=== PATIENT | female | born 1980 | race Caucasian/White ===

== ENCOUNTER → 2016-04-21 | Outpatient (CLI) | payer OTHER ==
--- NOTE | 2016-04-22 05:19 | REP ---
Clinical: Right upper quadrant and postprandial abdominal pain. Technique: Mahmood scale ultrasound using curved array transducer. Findings: The liver and pancreas are normal in contour, size, and echogenicity without focal hepatic or pancreatic lesions identified. The gallbladder is normal without gallstones, wall thickening or pericholecystic fluid. No biliary ductal dilatation is appreciated, and the common bile duct measures 4.0 mm diameter. The right kidney is normal in reniform shape without hydronephrosis and measures 9.4 x 4.4 x 4.2 cm. No ascites. Visualized portions of the abdominal aorta normal. Impression: Normal right upper quadrant and gallbladder abdominal ultrasound. Signed by Brant Michaels MD 04/22/2016 05:10 A
== END ==
LOC: M LRY 09:52
PROVIDERS: ATTEND Family Medicine
DX: R10.11 Right upper quadrant pain (principal)
CPT/HCPCS: 76705; 80053; 82150; 83690; 85025; G0463

== ENCOUNTER → 2016-04-21 | Outpatient (REF) | payer OTHER ==
[2016-04-21 11:32] LABS: BASO # 0.1 K/mm3 (0.0-0.2); BASO % 0.7 % (0.0-1.0); EOS # 0.1 K/mm3 (0.0-0.50); EOS % 1.3 % (0.0-3.0); LARGE UNSTAINED CELL # 0.1 K/mm3 (0.0-0.4); LARGE UNSTAINED CELL % 1.5 % (0.0-4.0); LYMPH # 2.8 K/mm3 (1.5-4.5); LYMPH % 34.3 % (24.0-44.0); MEAN CORPUSCULAR HEMOGLOBIN 27.6 pg (27.0-33.0); MEAN CORPUSCULAR HGB CONC 32.7 g/dl (32.0-36.5); MEAN CORPUSCULAR VOLUME 84.4 fl (80.0-96.0); MONO # 0.3 K/mm3 (0.0-0.8); MONO % 3.4 % (0.0-5.0); NEUTROPHILS # 4.8 K/mm3 (1.8-7.7); NEUTROPHILS % 58.8 % (36.0-66.0); PLATELET COUNT, AUTOMATED 319 k/mm3 (150-450); WHITE BLOOD COUNT 8.2 K/mm3 (4.0-10.0)
[2016-04-21 11:55] LABS: ALBUMIN 4.1 GM/DL (3.2-5.2); ALBUMIN/GLOBULIN RATIO 1.08 (1.00-1.93); ALKALINE PHOSPHATASE 85 U/L (45-117); ALT/SGPT 32 U/L (12-78); AMYLASE 54 U/L (25-115); ANION GAP 9 MEQ/L (8-16); AST/SGOT 19 U/L (15-37); BILIRUBIN,TOTAL 0.3 MG/DL (0.2-1.0); BLOOD UREA NITROGEN 11 MG/DL (7-18); CALCIUM LEVEL 8.9 MG/DL (8.5-10.1); CARBON DIOXIDE LEVEL 30 MEQ/L (21-32); CHLORIDE LEVEL 103 MEQ/L (98-107); CREATININE FOR GFR 0.81 MG/DL (0.55-1.02); GLOMERULAR FILTRATION RATE > 60.0 (>60); GLUCOSE, FASTING 77 MG/DL (70-105); POTASSIUM SERUM 4.4 MEQ/L (3.5-5.1); SODIUM LEVEL 142 MEQ/L (136-145); TOTAL PROTEIN 7.9 GM/DL (6.4-8.2)
== END | disposition home or self-care (01) ==
LOC: M SFHCLERA 09:43
PROVIDERS: ATTEND Family Medicine
DX: R10.11 Right upper quadrant pain (principal)

== ENCOUNTER → 2016-07-14 | Outpatient (CLI) | payer OTHER ==
[~2016-07-14] MED LIST: LOES1TAB12 PO; NEXI40CA PO; ZOLO25TA PO
--- NOTE | 2016-07-14 11:31 | REP ---
HIDA SCAN WITH GALLBLADDER EJECTION FRACTION: Following the intravenous administration of 6.2 mCi of technetium 99m mebrofenin, multiple images of the right upper quadrant are performed every 5 minutes for a period of 1 hour. Gallbladder is visualized at 40 minutes post injection. There is biliary to bowel transit by 25 minutes post injection with no scintigraphic evidence of cholecystitis. At the 1 hour evens, 8 ounces of Ensure Enlive was ingested and further imaging performed for 1 hour. Gallbladder activity is measured and the gallbladder ejection fraction is calculated to be 35% which is at the lower limits of normal. IMPRESSION: Gallbladder ejection fraction 35% is at the lower limits of normal. No scintigraphic evidence of cholecystitis. Signed by Doug Mahmood MD 07/14/2016 05:24 P
== END ==
LOC: M RAD 08:27
PROVIDERS: ATTEND Internal Medicine Gastroenterology
DX: R10.13 Epigastric pain (principal)

== ENCOUNTER 2016-08-14 12:45 | Outpatient (CLI) | payer OTHER ==
[~2016-08-14] VITALS: Ht 162.6 cm; Wt 72.6 kg
[~2016-08-14 12:45] MED LIST changes: +NS 1,000 ML IV ONE; +RANI15TA PO
[2016-08-14] MEDS ORDERED: PROPOFOL 200 MG/20 ML VIAL As Ordered ONE (14:11)
[2016-08-14] MEDS ORDERED: LIDOCAINE 2% INJ 100 MG/5 ML SDV (FOR ANES.) As Ordered ONE (14:11)
--- NOTE | 2016-08-14 14:21 | ROOR ---
Patient Name: Mehnaz Paulino Procedure Date: 08/14/2016 1:53 PM Date of : 1980 Age: 35 Room: [facility] Gender: Female Note Status: Finalized Procedure: Upper GI endoscopy Indications: Epigastric abdominal pain, Functional Dyspepsia Providers: Cody STOKES MD Referring MD: CIRILO WOMACK MD Requesting Provider: Medicines: Monitored Anesthesia Care Complications: No immediate complications. Procedure: Pre-Anesthesia Assessment: - The heart rate, respiratory rate, oxygen saturations, blood pressure, adequacy of pulmonary ventilation, and response to care were monitored throughout the procedure. The Endoscope was introduced through the mouth, and advanced to the third part of duodenum. The upper GI endoscopy was accomplished without difficulty. The patient tolerated the procedure well. Findings: The esophagus was normal. The stomach was normal. The examined duodenum was normal. Biopsies for histology were taken with a cold forceps for evaluation of celiac disease. Impression: - Normal esophagus. - Normal stomach. - Normal examined duodenum. Biopsied. Recommendation: - Continue present medications. (Dicyclomine as needed) - Telephone endoscopist for pathology results in 2 weeks. Cody Stokes MD Cody STOKES MD 08/14/2016 2:20:49 PM This report has been signed electronically. Number of Addenda: 0 Note Initiated On: 08/14/2016 1:53 PM Estimated Blood Loss: Estimated blood loss: none.
[2016-08-14 14:35] VITALS: BP 118/61
== END 2016-08-14 14:35 | disposition home or self-care (01) ==
LOC: M OPP 12:45
PROVIDERS: ATTEND Internal Medicine Gastroenterology
DX: K30 Functional dyspepsia (principal); R10.13 Epigastric pain; K21.9 Gastro-esophageal reflux disease without esophagitis; F41.9 Anxiety disorder, unspecified; F32.9 Major depressive disorder, single episode, unspecified; Z79.899 Other long term (current) drug therapy; Z80.0 Family history of malignant neoplasm of digestive organs; Z80.3 Family history of malignant neoplasm of breast

== ENCOUNTER → 2016-11-24 | Outpatient (REF) | payer OTHER ==
[~2016-11-24] MED LIST changes: -NS 1,000 ML IV ONE
[2016-11-24 17:20] LABS: MEAN CORPUSCULAR HEMOGLOBIN 28.1 pg (27.0-33.0); MEAN CORPUSCULAR HGB CONC 33.4 g/dl (32.0-36.5); RED CELL DISTRIBUTION WIDTH 12.9 % (11.5-14.5); WHITE BLOOD COUNT 8.2 K/mm3 (4.0-10.0)
== END ==
LOC: M SFHCLERA 11:53
PROVIDERS: ATTEND Physician Assistant
DX: F41.8 Other specified anxiety disorders (principal)

== ENCOUNTER → 2017-02-01 | Outpatient (REF) | payer OTHER | LOC: M SFHCLERA 17:06 | PROVIDERS: ATTEND Family Medicine | DX: J00 Acute nasopharyngitis [common cold] (principal) ==

== ENCOUNTER → 2017-06-16 | Outpatient (REF) | payer OTHER | LOC: M LAB REF 18:45 | DX: Z01.419 Encounter for gynecological examination (general) (routine) without abnormal findings (principal); Z11.51 Encounter for screening for human papillomavirus (HPV) | CPT/HCPCS: G0123 ==

== ENCOUNTER → 2017-06-22 | Outpatient (CLI) | payer OTHER ==
[2017-06-22 17:30] LABS: FREE T4 0.88 NG/DL (0.76-1.46)
== END ==
LOC: M LRY 11:20
DX: E03.9 Hypothyroidism, unspecified (principal)
CPT/HCPCS: 84443

== ENCOUNTER → 2017-06-24 | Outpatient (CLI) | payer OTHER | LOC: M RAD 09:06 | DX: N63.10 Unspecified lump in the right breast, unspecified quadrant (principal) | CPT/HCPCS: 77065 ==

== ENCOUNTER → 2017-07-27 | Outpatient (REF) | payer OTHER ==
[2017-07-27 20:19] LABS: CHLAMYDIA DNA AMPLIFICATION NEGATIVE (NEGATIVE); GC DNA AMPLIFICATION NEGATIVE (NEGATIVE)
== END ==
LOC: M LAB REF 16:20
DX: R10.2 Pelvic and perineal pain (principal)

== ENCOUNTER → 2018-03-16 | Outpatient (CLI) | payer OTHER ==
[2018-03-16 09:05] LABS: BASO % 0.6 % (0.0-1.0); EOS # 0.1 10^3/uL (0.0-0.50); EOS % 2.1 % (0.0-3.0); HEMATOCRIT 43.6 % (36.0-47.0); HEMOGLOBIN 13.9 g/dl (12.0-15.5); LYMPH # 2.7 10^3/uL (1.5-4.5); LYMPH % 40.7 % (24.0-44.0); MEAN CORPUSCULAR HEMOGLOBIN 27.4 pg (27.0-33.0); MEAN CORPUSCULAR HGB CONC 31.9 g/dl (32.0-36.5); MONO # 0.3 10^3/uL (0.0-0.8); MONO % 4.3 % (0.0-5.0); NEUTROPHILS # 3.4 10^3/uL (1.8-7.7); NEUTROPHILS % 52.1 % (36.0-66.0); PLATELET COUNT, AUTOMATED 324 10^3/uL (150-450); RED BLOOD COUNT 5.07 10^6/uL (4.00-5.40); WHITE BLOOD COUNT 6.5 10^3/uL (4.0-10.0)
[2018-03-16 09:26] LABS: HEMOGLOBIN A1c 5.4 %
[2018-03-16 09:41] LABS: BLOOD UREA NITROGEN 10 MG/DL (7-18); CALCIUM LEVEL 9.1 MG/DL (8.5-10.1); CARBON DIOXIDE LEVEL 29 MEQ/L (21-32); CHLORIDE LEVEL 104 MEQ/L (98-107); GLOMERULAR FILTRATION RATE > 60.0 (>60); GLUCOSE, FASTING 88 MG/DL (70-100); POTASSIUM SERUM 4.8 MEQ/L (3.5-5.1); SODIUM LEVEL 139 MEQ/L (136-145)
== END ==
LOC: M LAB 08:31
PROVIDERS: ATTEND Physician Assistant
DX: R73.01 Impaired fasting glucose (principal)

== ENCOUNTER → 2018-04-12 | Outpatient (CLI) | payer OTHER ==
[~2018-04-12] MED LIST changes: +IBUP-1114 PO
--- NOTE | 2018-04-12 12:10 | REP ---
EMERGENCY FOCUSED RIGHT BREAST SONOGRAPHY: HISTORY: Solitary cyst of the right breast. Comparison sonography June 29, 2017. Increasing pain. The patient reports a unsuccessful attempt at cyst aspiration in the office on April 08, 2018. She is scheduled for ultrasound-guided cyst aspiration in 3 days. SONOGRAPHIC FINDINGS: Scanning is performed in the right breast is from 11-o'clock position to 12-o'clock position in the area the patient's pain also at 10-o'clock position. Multiple hypoechoic lesions consistent with complex cysts are seen. In general, these have become more hypoechoic consistent with an intracystic proteinaceous fluid. No definitely solid lesions are seen. No internal blood flow is observed. Multiple complex cysts are seen. The largest four are measured as follows: 10-o'clock position, 2.0 x 1.2 x 1.4 cm; 11-o'clock position 2.2 x 1.6 x 2.2 cm; 12-o'clock position, 1.4 x 0.9 x 2.0 cm, and adjacent to this at 12-o'clock position is a 1.2 x 0.7 x 0.9 cm complex lesion. IMPRESSION: Findings compatible with multiple complex cysts, similar to the prior study from July 09, 2017 although there are increased echoes within the lesions in general. The patient is status post recent attempt at cyst aspiration. Electronically Signed by Manohar Ham MD 04/12/2018 05:31 P
== END ==
LOC: M RAD 09:55
PROVIDERS: ATTEND Specialist
DX: N60.01 Solitary cyst of right breast (principal)

== ENCOUNTER 2018-06-09 13:55 | Emergency (ER) | payer OTHER ==
[~2018-06-09] VITALS: Ht 162.6 cm; Wt 79.1 kg
[2018-06-09] MEDS ORDERED: ALPR0.25 (14:04)
[2018-06-09] MEDS ORDERED: ESCI10TA2 (14:04)
[2018-06-09 14:28] LABS: BASO # 0.1 10^3/uL (0.0-0.2); BASO % 0.4 % (0.0-1.0); EOS # 0.1 10^3/uL (0.0-0.50); EOS % 1.1 % (0.0-3.0); HEMATOCRIT 38.5 % (36.0-47.0); HEMOGLOBIN 12.4 g/dl (12.0-15.5); LYMPH # 3.3 10^3/uL (1.5-4.5); LYMPH % 29.3 % (24.0-44.0); MEAN CORPUSCULAR HEMOGLOBIN 27.4 pg (27.0-33.0); MEAN CORPUSCULAR HGB CONC 32.2 g/dl (32.0-36.5); MONO # 0.4 10^3/uL (0.0-0.8); MONO % 3.7 % (0.0-5.0); NEUTROPHILS # 7.3 10^3/uL (1.8-7.7); NEUTROPHILS % 65.2 % (36.0-66.0); PLATELET COUNT, AUTOMATED 324 10^3/uL (150-450); RED BLOOD COUNT 4.53 10^6/uL (4.00-5.40); WHITE BLOOD COUNT 11.2 10^3/uL (4.0-10.0)
[2018-06-09 15:05] LABS: BLOOD UREA NITROGEN 11 MG/DL (7-18); CALCIUM LEVEL 8.6 MG/DL (8.5-10.1); CARBON DIOXIDE LEVEL 25 MEQ/L (21-32); CHLORIDE LEVEL 103 MEQ/L (98-107); CK-MB VALUE MASS < 1.0 NG/ML (<3.6); CPK CREATINE PHOSPHOKINASE 95 U/L (26-192); GLOMERULAR FILTRATION RATE > 60.0 (>60); GLUCOSE, FASTING 98 MG/DL (70-100); MB/CK RELATIVE INDEX 1.05 (< OR =4); POTASSIUM SERUM 3.7 MEQ/L (3.5-5.1); SODIUM LEVEL 137 MEQ/L (136-145); TROPONIN I < 0.02 NG/ML (< 0.10)
[2018-06-09 16:22] LABS: HCG, SERUM QUALITATIVE NEGATIVE (NEGATIVE)
[2018-06-09 16:33] LABS: ALBUMIN 3.9 GM/DL (3.2-5.2); ALT/SGPT 22 U/L (12-78); BILIRUBIN,DIRECT 0.1 MG/DL (0.0-0.2); BILIRUBIN,TOTAL 0.4 MG/DL (0.2-1.0); MAGNESIUM LEVEL 2.1 MG/DL (1.8-2.4); TOTAL PROTEIN 7.4 GM/DL (6.4-8.2)
--- NOTE | 2018-06-09 17:16 | REP ---
CHEST: Two views. There is no evidence of acute infiltrate. No pleural effusion is seen. The heart is normal in size. The mediastinal silhouette is unremarkable. The visualized osseous structures are intact. IMPRESSION: No acute pulmonary disease. Electronically Signed by Doug Mahmood MD 06/10/2018 07:49 P
[2018-06-09 17:42] VITALS: BP 112/54
--- NOTE | 2018-06-10 06:24 | ECGEPIP ---
Stationary ECG Study 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 Order Number: [id number] Reading MD: Bhaskar Gaviria Measurements Intervals [place] Rate: 74 P: 62 [place]: 136 QRS: 46 QRSD: 90 T: 20 QT: 387 QTc: 430 Interpretive Statements SINUS RHYTHM WITH OCCASIONAL SUPRAVENTRICULAR PREMATURE COMPLEXES NO PRIORS FOR COMPARISON Electronically Signed On 06-10-2018 6:24:11 EDT by Bhaskar Gaviria
== END 2018-06-09 17:50 | disposition home or self-care (01) ==
LOC: M ED 13:55
DX: I49.1 Atrial premature depolarization (principal); R00.2 Palpitations; R06.02 Shortness of breath; F41.9 Anxiety disorder, unspecified; F32.9 Major depressive disorder, single episode, unspecified; Z79.899 Other long term (current) drug therapy

== ENCOUNTER → 2018-12-12 | Outpatient (CLI) | payer OTHER ==
[~2018-12-12] MED LIST changes: +ALPR0.25; +ESCI10TA2
--- NOTE | 2018-12-12 11:18 | REP ---
ULTRASOUND LEFT BREAST: Real-time sonographic evaluation of the left breast performed for palpable abnormalities superiorly. These have been present for one month and painful for the past 2 weeks. Dense fibroglandular tissue is seen in this region. Innumerable cysts are seen. There is a palpable complex cyst with diffuse low-level echoes at 11-o'clock position, 1.6 x 1.0 x 1.5 cm. There is an adjacent simple appearing cyst 1.7 x 0.8 x 1.5 cm. At 1-o'clock position, there is complex cyst with peripheral echogenic debris and wall thickening 3.1 x 1.2 x 2.0 cm and another similar-appearing complex cyst 3.2 x 1.3 x 3.1 cm. A similar-appearing cyst is also seen at 2 -o'clock position, 2.2 x 1.4 x 2.1 cm. IMPRESSION: Ultrasound left breast categorized as ACR category 4 suspicious with one hypoechoic nodule at the 11-o'clock position representing either a solid nodule or a complex cyst. Recommend ultrasound-guided aspiration. This nodule at 11 -o'clock position measures 1.6 x 1.0 x 1.5 cm. There are other complex cysts between 11-o'clock position and 2-o'clock position as discussed above with peripheral ill defined hyperechoic debris and wall thickening. Electronically Signed by Doug Mahmood MD 12/13/2018 09:53 A
== END ==
LOC: M RAD 09:59
PROVIDERS: ATTEND Advanced Practice Midwife
DX: N60.01 Solitary cyst of right breast (principal)

== ENCOUNTER → 2019-01-02 | Outpatient (CLI) | payer OTHER ==
[~2019-01-02] MED LIST changes: +LIDOCAINE 1% MDV 20ML VIAL As Ordered ONE
[2019-01-02 14:15] VITALS: BP 113/59
--- NOTE | 2019-01-02 18:51 | REP ---
Ultrasound-guided left breast cyst aspiration. The procedure was performed by BJ Weaver, under the direct supervision of Dr. Ham. The patient has a history of a hypoechoic nodule at the 11 o'clock position, represent either a solid nodule or complex cyst. As well as a complex cyst in the 1 o'clock and 2 o'clock positions on an ultrasound dated 12/12/2018. The risks and benefits of the procedure were explained to the patient and informed consent was obtained both verbally and written. Directly prior to the start of the procedure, a formal timeout was completed in the procedure room. During the pre-procedural ultrasound the nodule in the 11 o'clock position could not be identified, however another suspicious area was identified at the 9 o'clock position and the decision was made to biopsy/aspirate this nodule instead of the previously described 11 o'clock cyst. The three left breast cysts were localized using ultrasound guidance. The entire left breast was prepped and draped in a sterile fashion. A total of 4 ml of 1% lidocaine was used as a local anesthetic. Using ultrasound guidance at the 9-0 o'clock position an 18-gauge needle was inserted and advanced into the complex cyst, approximately 1 ml of fluid was withdrawn. Using ultrasound guidance at the 1 o'clock position an 18-gauge needle was inserted and advanced into the cyst, and approximately 3 ml of fluid was withdrawn. Flavia using ultrasound guidance at the 2 o'clock position and 80 gauge needle was inserted and advanced into the cyst, an approximately 10 ml of fluid was withdrawn. All the fluid was sent to the lab for further analysis. The patient tolerated the procedure well and there were no immediate complications. After the appropriate monitored convalescence the patient was discharged from the department. Reviewed by BJ Jones 01/02/2019 05:41 P Electronically Signed by Manohar Ham MD 01/02/2019 06:42 P
== END ==
LOC: M IRPRO 12:08
PROVIDERS: ATTEND Surgery
DX: N63.24 Unspecified lump in the left breast, lower inner quadrant (principal); N63.21 Unspecified lump in the left breast, upper outer quadrant

== ENCOUNTER → 2019-01-12 | Outpatient (REF) | payer OTHER ==
[~2019-01-12] MED LIST changes: -LIDOCAINE 1% MDV 20ML VIAL As Ordered ONE
== END ==
LOC: M LAB REF 12:47
PROVIDERS: ATTEND Physician Assistant
DX: R30.0 Dysuria (principal)

== ENCOUNTER → 2019-01-12 | Outpatient (CLI) | payer OTHER ==
[2019-01-12 13:55] LABS: HEMATOCRIT 38.9 % (36.0-47.0); HEMOGLOBIN 12.5 g/dl (12.0-15.5); MEAN CORPUSCULAR HEMOGLOBIN 27.9 pg (27.0-33.0); MEAN CORPUSCULAR HGB CONC 32.1 g/dl (32.0-36.5); MEAN CORPUSCULAR VOLUME 86.8 fl (80.0-96.0); PLATELET COUNT, AUTOMATED 341 10^3/uL (150-450); RED BLOOD COUNT 4.48 10^6/uL (4.00-5.40)
--- NOTE | 2019-01-12 15:44 | REP ---
LEFT BREAST ULTRASOUND: HISTORY: Ultrasound guided biopsy left breast 01/02/2019, now with pain. Real-time sonographic evaluation of the upper left breast performed in the region of pain. Multiple cystic structures are seen in the upper aspect of the left breast in the region of pain. There is one that contains low level echoes, which is the largest cyst and measures 1.5 x 1.1 x 1.7 cm. There is dense fibroglandular tissue. No hematoma or fluid collection is seen. Electronically Signed by Doug Mahmood MD 01/14/2019 10:59 A
== END ==
LOC: M RAD 13:37
PROVIDERS: ATTEND Nurse Practitioner
DX: N63.20 Unspecified lump in the left breast, unspecified quadrant (principal); N64.4 Mastodynia; R30.0 Dysuria

== ENCOUNTER → 2019-04-05 | Outpatient (CLI) | payer OTHER ==
--- NOTE | 2019-04-05 09:49 | REPMRS ---
Patient History Family history of breast cancer at age 75 in paternal grandmother, colorectal cancer at age 50 or over in maternal grandfather. US Guided Breast Biopsy of the left breast, January 02, 2019. Taking hormonal contraceptives for 1 year. Indicated problem(s): bilateral pain. Patient states she is bilaterally lumpy and has bilateral breast pain. Left is worse than the right. Diagnostic Bilateral Mammo: April 05, 2019 - Exam #: [id number] Bilateral CC and MLO view(s) were taken. Technologist: Bea Pineda, Technologist Prior study comparison: June 24, 2017, right breast digital mammo diagnostic unilateral, performed at [facility]. FINDINGS: The breast tissue is extremely dense which could obscure a lesion on mammography. There is an extremely dense symmetrical pattern of residual fibroglandular tissue. There has been no change in the appearance of the mammogram from the previous studies. There is no interval development of dominant mass, archetectural distortion, or grouped microcalcifications suggestive of malignancy. Assessment: BI-RADS/ACR category 1 mammogram. Negative Mammogram. Recommendation Breast MRI of both breasts in 6 months. Routine screening mammogram of both breasts in 1 year (for women over age 40). This patient's Lifetime Breast Cancer RIsk is estimated at 21.4 %. This mammogram was interpreted with the aid of an FDA-approved computer-aided dectection system. Electronically Signed By: Lennox Ham MD 04/05/19 0949
== END ==
LOC: M WHC 08:53
PROVIDERS: ATTEND Surgery
DX: N64.4 Mastodynia (principal)

== ENCOUNTER → 2019-07-03 | Outpatient (CLI) | payer OTHER | LOC: M LABSMTC 10:23 | PROVIDERS: ATTEND Family Medicine | DX: Z11.59 Encounter for screening for other viral diseases (principal); Z20.828 Contact with and (suspected) exposure to other viral communicable diseases ==